=== PATIENT | male | born 1965 | race Caucasian/White ===

== ENCOUNTER 2016-10-12 07:06 | Observation (INO) | payer OTHER ==
[2016-10-12] MEDS ORDERED: MIDAZOLAM 2 MG/2 ML VIAL IVP ONE (07:08)
[2016-10-12] MEDS ORDERED: NS 1,000 ML IV ONE (07:08)
--- NOTE | 2016-10-12 07:31 | CPEKG ---
Heart Rate: 83 RR Interval: 723 P-R Interval: 156 QRSD Interval: 88 QT Interval: 368 QTC Interval: 433 P [place]: 7 QRS [place]: 27 T Wave [place]: 20 EKG Severity - NORMAL ECG - EKG Impression: SINUS RHYTHM Electronically Signed By: Franki Geronimo 12-Oct-2016 12:06:33
[2016-10-12 08:16] LABS: % IMMATURE GRANULYOCYTES 0.2 % (0.0-1.1); ABSOLUTE IMMATURE GRANULOCYTES 0.01 10^3/uL (0.00-0.10); ADD DIFF? NO; ADD MORPH? NO; ADD SCAN? NO; ATYPICAL LYMPHOCYTE FLAG 20 (0-99); FRAGMENT RBC FLAG 0 (0-99); HEMATOCRIT 45.7 % (40.0-51.0); HEMOGLOBIN 16.1 g/dL (13.7-17.5); LEFT SHIFT FLG 0 (0-99); LIPEMIA HEMOLYSIS FLAG 90 (0-99); MEAN CELL HEMOGLOBIN 31.1 pg (27.9-34.1); MEAN CELL HEMOGLOBIN CONCENTR. 35.2 g/dL (32.4-36.7); MEAN CELL VOLUME 88.2 fL (81.5-99.8); MEAN PLATELET VOLUME 10.4 fL (8.7-11.7); PLATELET CLUMPS FLAG 10 (0-99); PLATELET COUNT 126 10^3/uL (150-400); RED BLOOD CELL COUNT 5.18 10^6/uL (4.40-6.38); RED CELL DISTRIBUTION WIDTH 14.5 % (11.5-15.2)
[2016-10-12] MEDS ORDERED: ROCURONIUM 100 MG/10 ML VIAL ONE (08:25)
[2016-10-12] MEDS ORDERED: ONDANSETRON 4 MG/2 ML VIAL ONE (08:25)
[2016-10-12] MEDS ORDERED: DEXAMETHASONE 4 MG/ML VIAL ONE (08:25)
[2016-10-12] MEDS ORDERED: fentaNYL 100 MCG/2 ML INJ ONE (08:26)
[2016-10-12] MEDS ORDERED: PROPOFOL 200 MG/20 ML VIAL ONE (08:26)
[2016-10-12] MEDS ORDERED: BUPIVACAINE 0.5% 30 ML SDV ONE (08:32)
[2016-10-12] MEDS ORDERED: HEPARIN 10,000 UNIT/10 ML MDV ONE (08:32)
[2016-10-12] MEDS ORDERED: ISOPROTERENOL HCL 0.2 MG/ML 5ML AMP ONE (08:32)
[2016-10-12] MEDS ORDERED: LIDOCAINE 1% 30 ML SDV ONE ×2 (08:32→09:22)
[2016-10-12 08:37] LABS: INR 0.99 (0.83-1.16)
[2016-10-12 08:38] LABS: APTT 27.4 SEC (23.0-38.0)
[2016-10-12 08:43] LABS: ANION GAP 12 mEq/L (8-16); CALCIUM 9.7 mg/dL (8.5-10.4); CARBON DIOXIDE 22 mEq/l (22-31); CHLORIDE 106 mEq/L (97-110); CREATININE 1.1 mg/dL (0.7-1.3); GLOMERULAR FILTRATION RATE > 60; GLUCOSE 97 mg/dL (70-100); POTASSIUM 4.1 mEq/L (3.5-5.2); SODIUM 140 mEq/L (134-144)
[2016-10-12] MEDS ORDERED: MIDAZOLAM 2 MG/2 ML VIAL ONE (08:43)
[2016-10-12] MEDS ORDERED: SUGAMMADEX SODIUM 200 MG/2 ML VIAL IVP ONE ×2 (10:29)
[2016-10-12] MEDS ORDERED: OXYCODONE/APAP 5/325 TAB PO PRN (10:36)
[2016-10-12] MEDS ORDERED: ONDANSETRON 4 MG/2 ML VIAL IVP PRN (10:36)
[2016-10-12] MEDS ORDERED: ACETAMINOPHEN 325 MG TAB PO PRN (10:36)
--- NOTE | 2016-10-12 10:36 | EPPROC ---
Electrophysiology Procedure Note: ELECTROPHYSIOLOGIC STUDY AND CATHETER MEDIATED ABLATION OF SLOW/FAST AV LANDRY REENTRY TACHYCARDIA PROCEDURES PERFORMED: 49013-31 EP evaluation with RA/RV/LA pace/record, with arrhythmia induction 38050-49 EP evaluation with RA/RV pace record, insert/reposition catheter, with arrhythmia induction 44501 Intracardiac catheter ablation, SVT arrhythmogenic focus 64218 3D mapping Fluoroscopy INDICATION: PROCEDURE: Catheters & Anesthesia: The patient arrived in the Electrophysiology Laboratory in the fasting state. The right clavicular region, right groin, and left groin area were prepped and draped in the usual sterile manner. Anesthesiologist Dr. Nehal Whitt administered general anesthesia. Appropriate non-invasive blood pressure, pulse oximetry and end-tidal CO2 monitoring was established. All catheters were placed percutaneously using the modified Seldinger technique , and advanced into position under fluoroscopic guidance. One #6 Albanian hexapolar non-deflectable electrode catheter was inserted into the right atrial appendage via the left femoral vein (2mm spacing; except the proximal ring which was 25cm from the tip used for unipolar recordings). One #7 Albanian deflectable octapolar electrode catheter was advanced to the His-bundle position via the left femoral vein (2mm spacing). One #7 Albanian deflectable quadrapolar catheter was advanced to the anteroseptal right ventricle via the right femoral vein. One #7 Albanian deflectable catheter with 10 pairs of electrodes was placed via the right femoral vein into the coronary sinus. Heparin 5000 U was given. Programmed stimulation was performed from the right atrium, right ventricle and coronary sinus (left atrium). Parahisian pacing demonstrated constant H-A interval with changing V-A intervals and stimulus-A intervals during capture and loss of capture of proximal RBB proving retrograde conduction over AV node. AVNRT was induced easily during infusion of isoproterenol 1 mcg/min. Ventricular extrastimuli delivered during tachycardia without altering antegrade His bundle activation did not advance next atrial potential, indicating that the tachycardia was not utilizing an accessory pathway for retrograde conduction. VA interval was 0 ms. Post entrainment of the tachycardia from the ventricle, there was VAHV response. Mapping of the right atrium and coronary sinus during AVNRT identified earliest atrial activation above the tendon of Irina at a level slightly posterior to the level of the His bundle, consistent with retrograde conduction over the fast AV landry pathway. A #8 Albanian deflectable quadrapolar electrode catheter (2mm-5mm-2mm spacing) with 4 mm tip electrode and sensor for the 3D mapping Carto system was advanced to the right atrium. 3 D mapping of the inter-atrial septum and coronary sinus was performed and location of the AV node was marked. A SL2 sheath was used. RF applications were delivered to the region between the tricuspid annulus and the coronary sinus ostium, at the level of the upper edge of the coronary sinus ostium. CS was small caliber and therefore no ablations were performed in the proximal CS. Junctional rhythm occurred during all of the RF applications. Programmed stimulation was continued post ablation at baseline and during graded doses of isoproterenol upto 4mcg/min. Sustained AVNRT was not inducible. There were single echo beats. The catheters were removed. The long sheath was changed to a short 9 Fr sheath. The patient was transferred to the cardiovascular holding area in stable condition. Vascular access sheaths were removed in the holding area. There were no apparent complications. Results: A. Spontaneous Intervals: Pre ablation SCL 855 ms AH 55 ms HV 55 ms Post ablation SCL 740 ms AH 60 ms HV 55 ms B. Antegrade AV landry function (decremental pacing) Pre ablation FPERP 420 ms SPERP 390 ms WBB CL 380 ms Post ablation FPERP 390 ms WBB CL 380 ms C. Retrograde AV landry function (decremental pacing) Pre ablation FPERP 300 ms WBB CL 290 ms D. Arrhythmias: Sustained slow/fast AVNRT Cycle length 340 ms, AH interval 290 ms, LYNNE interval 50 ms VA interval 0 ms CONCLUSIONS 1. AV landry reentrant tachycardia using the slow AV landry pathway for antegrade conduction and the fast AV landry pathway for retrograde conduction. ( Slow/fast AVNRT). 2. Successful ablation of the slow AV landry pathway with elimination of 1:1 antegrade conduction over the slow AV landry pathway, all retrograde conduction over the slow AV landry pathway and the inducibility of AVNRT. 3. No complications. Patient Problems: Problems Problem Status Onset SVT (supraventricular tachycardia) Acute CAD (coronary artery disease) Acute
[2016-10-12] MEDS ORDERED: NITROGLYCERIN 0.4 MG BTL SL PRN (10:37)
[2016-10-12] MEDS ORDERED: ATROPINE SULFATE 1 MG/10 ML SYR ONE (10:52)
[2016-10-12 11:29] LABS: ANION GAP 12 mEq/L (8-16); CALCIUM 8.8 mg/dL (8.5-10.4); CARBON DIOXIDE 22 mEq/l (22-31); CHLORIDE 108 mEq/L (97-110); CREATININE 1.1 mg/dL (0.7-1.3); GLOMERULAR FILTRATION RATE > 60; GLUCOSE 103 mg/dL (70-100); MAGNESIUM 1.8 mg/dL (1.6-2.3); POTASSIUM 3.9 mEq/L (3.5-5.2); SODIUM 142 mEq/L (134-144)
--- NOTE | 2016-10-12 11:50 | CPEKG ---
Heart Rate: 81 RR Interval: 741 P-R Interval: 180 QRSD Interval: 80 QT Interval: 372 QTC Interval: 432 P [place]: 13 QRS [place]: 21 T Wave [place]: 14 EKG Severity - NORMAL ECG - EKG Impression: SINUS RHYTHM Electronically Signed By: Franki Geronimo 12-Oct-2016 12:06:39
[2016-10-12] MEDS: PRASUGREL HCL 10 MG TAB PO SCH (12:28)
[2016-10-12] MEDS: ASPIRIN EC 325 MG TAB PO SCH (12:31)
[2016-10-12] MEDS ORDERED: CEPACOL LOZENGE PO PRN (14:05)
[2016-10-12] MEDS ORDERED: ALPRAZolam 1 MG TAB PO ONE (14:30)
[2016-10-12] MEDS ORDERED: ATORVASTATIN CALCIUM 10 MG TAB PO SCH (18:00)
[2016-10-12] MEDS: METOPROLOL TARTRATE 50 MG TAB PO SCH (20:13)
[2016-10-13 03:52] VITALS: RESP 16
[2016-10-13 05:17] LABS: % IMMATURE GRANULYOCYTES 0.2 % (0.0-1.1); ABSOLUTE IMMATURE GRANULOCYTES 0.02 10^3/uL (0.00-0.10); ADD DIFF? NO; ADD MORPH? NO; ADD SCAN? NO; ATYPICAL LYMPHOCYTE FLAG 10 (0-99); FRAGMENT RBC FLAG 0 (0-99); HEMATOCRIT 43.1 % (40.0-51.0); LEFT SHIFT FLG 0 (0-99); LIPEMIA HEMOLYSIS FLAG 90 (0-99); MEAN CELL HEMOGLOBIN 30.7 pg (27.9-34.1); MEAN CELL HEMOGLOBIN CONCENTR. 34.8 g/dL (32.4-36.7); MEAN CELL VOLUME 88.3 fL (81.5-99.8); MEAN PLATELET VOLUME 10.8 fL (8.7-11.7); PLATELET CLUMPS FLAG 0 (0-99); PLATELET COUNT 166 10^3/uL (150-400); RED BLOOD CELL COUNT 4.88 10^6/uL (4.40-6.38); RED CELL DISTRIBUTION WIDTH 14.3 % (11.5-15.2)
[2016-10-13 05:23] LABS: INR 1.09 (0.83-1.16)
[2016-10-13 05:43] LABS: ANION GAP 9 mEq/L (8-16); CALCIUM 9.7 mg/dL (8.5-10.4); CARBON DIOXIDE 22 mEq/l (22-31); CHLORIDE 106 mEq/L (97-110); GLOMERULAR FILTRATION RATE > 60; GLUCOSE 114 mg/dL (70-100); POTASSIUM 4.4 mEq/L (3.5-5.2); SODIUM 137 mEq/L (134-144)
[2016-10-13 05:50] LABS: CREATINE KINASE-MB FRACTION 2.31 ng/mL (0-3.19)
[2016-10-13 08:21] VITALS: BP 122/72; PULSE 79; TEMP 98.3; O2SAT 97
--- NOTE | 2016-10-13 08:43 | CPEKG ---
Heart Rate: 78 RR Interval: 769 P-R Interval: 172 QRSD Interval: 84 QT Interval: 380 QTC Interval: 433 P [place]: 13 QRS [place]: 38 T Wave [place]: 19 EKG Severity - NORMAL ECG - EKG Impression: SINUS RHYTHM Electronically Signed By: Franki Geronimo 14-Oct-2016 09:04:53
[2016-10-13] MEDS: METOPROLOL TARTRATE 50 MG TAB PO SCH (08:49)
[2016-10-13] MEDS: ASPIRIN EC 325 MG TAB PO SCH (08:49)
[2016-10-13] MEDS: PRASUGREL HCL 10 MG TAB PO SCH (08:49)
[2016-10-13] MEDS ORDERED: MULTIVITAMINS 1 EACH TAB PO SCH (09:00)
[2016-10-13] MEDS ORDERED: ALPRAZolam 0.5 MG TAB PO PRN (09:00)
--- NOTE | 2016-10-13 10:08 | GDS ---
[f rep st] DISCHARGE SUMMARY DISCHARGE DIAGNOSES: 1. Atrioventricular ish reentry tachycardia (AVNRT), status post ablation. 2. History of coronary artery disease with prior stenting to an obtuse marginal and left anterior d escending artery in March 2016. 3. Hyperlipidemia. 4. Obstructive sleep apnea, on CPAP. HOSPITAL COURSE: For detailed H and P, please see prior dictation. Briefly, the patient is a 51-ye ar-old male with at least a 15-year history of SVT. Recently he was admitted to [facility] with a rate of 154 beats per minute. He required adenosine for conversion to normal sinus rhy [facility] despite metoprolol therapy. Ultimately, he decided he would like to proceed with an EP study an d ablation. This was performed by Dr. Sixto Anderson on 10/12/2016. The procedure was uncomplicated. The following morning, he denied any chest discomfort or palpitations. He was monitored on telemetr y and remained in normal sinus rhythm. His EKG the day of discharge showed normal sinus rhythm at a heart rate of 78 beats per minute. The preliminary results of an echocardiogram revealed preserved LV function without any evidence of pericardial effusion. His troponin peaked at 0.160. His only complaint is some mild discomfort with swallowing. He denies any issues with getting food stuck, an d this discomfort does seem to be improving. PHYSICAL EXAMINATION: GENERAL: Patient appears in no acute distress. VITAL SIGNS: Blood pressure 122/72, heart rate 79, oxygen saturation of 97% on room air. Afebrile. LUNGS: Clear to auscultat ion. No wheezes, rhonchi, or crackles auscultated. CARDIAC: Regular rate and rhythm without any m urmurs, rubs, or gallops appreciated. EXTREMITIES: Bilateral groins where access was obtained for t he EP study and ablation are clean and intact without any evidence of hematoma. His left groin does have some ecchymosis. DISCHARGE MEDICATIONS: Aspirin 325 mg daily, Lopressor 50 mg b.i.d., Xanax 0.5 to 1 mg p.o. p.r.n., multivitamin daily, nitroglycerin p.r.n., Plavix 10 mg daily, Lipitor 10 mg daily. PLAN: The patient is currently stable ready for discharge home. He will follow up with Dr. Sixto Justin in 1 month as planned. /[id number]/MODL
--- NOTE | 2016-10-13 11:16 | ECHO ---
[id number] + + [address] : : [place] [address] : : [phone] + + Adult Echocardiographic Report + -------+ :Name: JYOTI MOREAU SStudy Date: 10/13/2016 07:53 AM : : Hospital Admission Number: [id number] Locati on: 200: :: 1965 Gender: Male Height: 73 in : :Age: 51 yrs Race: WH Weight: 232 lb : :Reason For Study: F/U post EP study : : BSA: 2.3 meter s2 : + -------+ MMode/2D Measurements \T\ Calculations IVSd: 0.74 cm LVIDd: 5.0 cm FS: 38.0 % Ao root diam: LVPWd: 0.80 cm LVIDs: 3.1 cm EDV(Teich): 4.0 cm 117.1 ml LA dimension: ESV(Teich): 3.8 cm 37.5 ml EF(Teich): 68.0 % LVLd ap4: 7.7 cm SV(MOD-sp4): EDV(MOD-sp4): 60.0 ml 82.0 ml LVLs ap4: 5.9 cm ESV(MOD-sp4): 22.0 ml EF(MOD-sp4): 73.2 % Normal Measurement Values: + + :LVIDd (3.5-5.7cm) IVSd (0.6-1.1cm) LVPWd (0.6-1.1cm) Aortic Root (2.0-3.7cm)Left Atrium (1.5-4.0cm): :LV Vol(d) (76-115ml) LV Vol(s) (29-48ml) Ejec Fraction (50-65%)PV Rebuen (0.6- 1.2m/s) TV Reuben (0.4-1.0m/s) : :MV E Reuben (0.8-1.0m/s)MV A Reuben (0.3-1.0m/s)LVOT Reuben (0.7-1.2m/s) Asc Ao Reuben ( 0.9-1.8m/s) : + + Doppler Measurements \T\ Calculations MV E max reuben: 80.5 cm/sec Ao V2 max: 119.4 cm/sec MV A max reuben: 51.8 cm/sec Ao max P.7 mmHg MV E/A: 1.6 Left Ventricle The left ventricle is normal in size. There is normal left ventricular wall thickness. Left ventricular systolic function is normal. Ejection Fraction = 65-70%. No regional wall motion abnormalities noted. Right Ventricle The right ventricle is normal in size and function. Atria The left atrial size is normal. Right atrial size is normal. The interatrial septum is intact with no evidence for an atrial septal defect. Mitral Valve The mitral valve is normal in structure and function. There is no evidence of mitral valve prolapse. There is no mitral valve stenosis. There is mild mitral regurgitation. Tricuspid Valve Normal tricuspid valve. There is trace tricuspid regurgitation. Aortic Valve The aortic valve is trileaflet. The aortic valve opens well. There is no aortic stenosis. Trace aortic regurgitation. Pulmonic Valve The pulmonic valve is normal in structure and function. There is no pulmonic valvular regurgitation. Great Vessels The aortic root is normal size. Pericardium/Pleural There is no pericardial effusion. Conclusion A complete two-dimensional transthoracic echocardiogram was performed (2D, M-mode, Doppler and color flow Doppler). Left ventricular systolic function is normal. Ejection Fraction = 65-70%. There is mild mitral regurgitation. There is trace tricuspid regurgitation. Trace aortic regurgitation. There is no pericardial effusion. Final Reading Physician: Taylor Sauer signed on 10/13/2016 11:16 AM Ordering Physician: Sixto Anderson Performed By: Justina Mckenzie, ADE
== END 2016-10-13 12:00 | disposition home or self-care (01) ==
LOC: FCATH 07:06 → F2W 11:02
PROVIDERS: ADMIT Internal Medicine Cardiovascular Disease; ATTEND Internal Medicine Cardiovascular Disease
PROC: 025L3ZZ Destruction of Left Ventricle, Percutaneous Approach (ICD-10-PCS; principal; 2016-10-12)
PROC: 02K83ZZ Map Conduction Mechanism, Percutaneous Approach (ICD-10-PCS; principal; 2016-10-12)
PROC: 4A023FZ Measurement of Cardiac Rhythm, Percutaneous Approach (ICD-10-PCS; principal; 2016-10-12)
PROC: 02H73MZ Insertion of Cardiac Lead into Left Atrium, Percutaneous Approach (ICD-10-PCS; principal; 2016-10-12)
DX: I47.1 Supraventricular tachycardia (principal); I25.10 Atherosclerotic heart disease of native coronary artery without angina pectoris; E78.5 Hyperlipidemia, unspecified; I10 Essential (primary) hypertension; G47.33 Obstructive sleep apnea (adult) (pediatric)
CPT/HCPCS: 93005; 93306; 93613; 93621; 93623; 93653; C1730; C1731; C1732; G0378; C1893; J0461; J1100; J1644; J2250; J2405; J2704; J3010